=== PATIENT | female | born 1940 | race Caucasian/White ===

== ENCOUNTER 2017-05-12 15:00 | Emergency (ER) | payer OTHER ==
[~2017-05-12] VITALS: Ht 157.5 cm; Wt 59.9 kg
[~2017-05-12 15:00] MED LIST: CELEBREX50 MG PO; FOLIC ACID/B-6/1 TAB PO; METHOTREXATE PO
== END 2017-05-12 19:23 | disposition home or self-care (01) ==
LOC: ER 15:00
DX: R05 Cough (principal)